=== PATIENT | male | born 1955 | race African-American/Black ===

== ENCOUNTER 2022-03-27 08:43 | Emergency (ER) | payer MEDICAID ==
[~2022-03-27] VITALS: Ht 177.8 cm; Wt 73.0 kg
[2022-03-27] MEDS ORDERED: AMLODIPINE 5MG TABLET PO ONE (11:45)
[2022-03-27] MEDS ORDERED: MECLIZINE 25MG TABLET PO ONE ×2 (11:45→13:22)
[2022-03-27 12:28] LABS: BASOPHILS % 0.7 % (0.0-2.0); EOSINOPHILS % 0.1 % (0.0-5.0); HEMATOCRIT. 32.4 % (42.0-52.0); HEMOGLOBIN. 11.1 g/dL (14.0-18.0); LYMPHOCYTES % 16.8 % (20.0-50.0); MEAN CORPUSCULAR HEMOGLOBIN 32.2 pg (28.0-32.0); MEAN CORPUSCULAR VOLUME 93.8 fL (80.0-94.0); MONOCYTES % 7.7 % (2.0-8.0); NEUTROPHILS % 74.7 % (40.0-76.0); PLATELET 325 x1000/uL (130-400); RED BLOOD CELL COUNT 3.45 mill/uL (4.7-6.1); RED CELL DISTRIBUTION WIDTH 16.2 % (11.6-14.6)
[2022-03-27 12:35] LABS: CHLORIDE 100 mEq/L (98-107)
[2022-03-27 12:36] VITALS: BP 152/58
[2022-03-27] MEDS ORDERED: MECL-159 MT (13:34)
[2022-03-27] MEDS ORDERED: AMOX-494 MT (13:41)
== END 2022-03-27 14:02 | disposition home or self-care (01) ==
LOC: ER 08:43
DX: R42 Dizziness and giddiness (principal); R53.1 Weakness; E11.9 Type 2 diabetes mellitus without complications
CPT/HCPCS: 36415; 70450; 71045; 80053; 83880; 84484; 85025; 93005; 99285; J8597